=== PATIENT | female | born 1990 | race African-American/Black ===

== ENCOUNTER 2016-05-30 08:07 | Inpatient (IN) | payer MEDICAID ==
[2016-05-30] VITALS (14 sets, daily range): BP systolic 108–148; BP diastolic 47–79; PULSE 82–94; RESP 17–20; TEMP 97.6–98.2; O2SAT 94–98
[~2016-05-30 08:07] MED LIST: PREN29TA PO
[2016-05-30] MEDS ORDERED: LACTATED RINGER'S 1000 ML INJ 1,000 ML IV ONE (09:07)
--- NOTE | 2016-05-30 09:07 | HHI.HP ---
HPI Chief Complaint Scheduled Date Seen: May 30, 2016 Time Seen: 09:03 Travel History International Travel<30 Days: No Contact w/Intl Traveler<30Days: No Known Affected Area: No History of Present Illness HPI This patient is a 26-year-old , EDC is June 06, 2016, she is presently at 40 weeks gestation. She is scheduled for a repeat . A recent ultrasound done on January 30, 2016 confirmed an EDC of June 06. Today , the patient is feeling well. She endorses positive movement, she denies vaginal bleeding or discharge. She has been taking her baby aspirin, as well as her Tums every day. She has no allergies to medications or anesthesia. The patient does not want a bilateral tubal ligation, as well as initially planned. History Past Medical History Narrative Medical Acid reflux Preeclampsia 2 Elevated one hour GTT, level was 155, did not get three-hour test. Previous LGA baby Morbid obesity Obstetric History Obstetric History 2 prior C-sections in 2007, 2008 for preeclampsia. Both delivered postdates > 40 weeks. Allergies-Medications (Allergen,Severity, Reaction): Coded Allergies: No Known Allergies (Verified , 05/14/16) Home Meds Reported Medications Vit-Iron Carbonyl ( Plus Iron 29-1 mg)1 Tab Tab1 Tab PO DAILY #30 TAB Ref 0 04/14/16 Physical Exam Narrative GENERAL: Well-nourished, well-developed patient. SKIN: Warm and dry. HEAD: Normocephalic and atraumatic. EYES: No scleral icterus. No injection or drainage. ENT: No nasal drainage noted. Mucous membranes pink. Airway patent. NECK: Supple, trachea midline. No JVD. CARDIOVASCULAR: Regular rate and rhythm without murmurs, gallops, or rubs. RESPIRATORY: Breath sounds equal bilaterally. No accessory muscle use. BREASTS: Bilateral exam showed no masses , no retractions, no nipple discharge. ABDOMEN/GI: Abdomen soft, non-tender, bowel sounds present, no rebound, no guarding Gravid to 39 weeks size GENITOURINARY: External Genitalia: intact and normal in appearance FHT's: Category: 1 Baseline: 145 Reactive: Y Variability: mod Decels: none EXTREMITIES: No cyanosis or edema. BACK: Nontender without obvious deformity. NEUROLOGICAL: Awake and alert. Motor and sensory grossly within normal limits. Assessment/Plan Problem List: (1) Morbid obesity (2) History of pre-eclampsia (3) History of section (4) Gestational diabetes Assessment and Plan 26-year-old , presenting at 39 weeks gestation, for a scheduled . IUP - Scheduled 39 weeks gestation, confirmed with ultrasound during third trimester. Consents have been signed, patient does not want a bilateral tubal ligation. The patient does not have any allergies to medications, anesthesia, or bleeding disorders. Category 1 tracing. Not having contractions on toco. 2 g Ancef prior to . Type and screen, urinalysis, and preop H&H. Gestational Diabetes O'Astorga testing greater than 155. Diet controlled. Monitor blood sugar before meals. Previous preeclampsia Blood pressure on admission was 138/80. Blood pressures in the office have all been less than 143/90. Currently no symptoms of severe preeclampsia. Patient is on aspirin therapy. We'll discuss with Dawson Mcnally MD R2 May 30, 2016 09:07
[2016-05-30 09:19] LABS: AUTOMATED NEUTROPHIL # 3.5 TH/MM3 (1.8-7.7); BASOPHIL % 0.4 % (0.0-2.0); EOSINOPHIL # 0.1 TH/MM3 (0-0.4); EOSINOPHIL % 1.7 % (0.0-4.0); HEMATOCRIT 34.4 % (35.0-46.0); HEMO FLAGS DIFF FINAL; LYMPH % 36.3 % (9.0-44.0); LYMPHOCYTE # 2.3 TH/MM3 (1.0-4.8); MEAN CELL VOLUME 85.6 FL (80.0-100.0); MEAN CORPUSCULAR HEMOGLOBIN 28.7 PG (27.0-34.0); MEAN CORPUSCULAR HGB CONC 33.5 % (32.0-36.0); MONO % 6.1 % (0.0-8.0); NEUT % 55.5 % (16.0-70.0); PLATELET COUNT 151 TH/MM3 (150-450); RED BLOOD COUNT 4.02 MIL/MM3 (4.00-5.30); RED CELL DISTRIBUTION WIDTH 14.9 % (11.6-17.2); WHITE BLOOD COUNT 6.3 TH/MM3 (4.0-11.0)
[2016-05-30 09:29] LABS: BACTERIA, URINE MOD /hpf; BLOOD, URINE NEG (NEG); GLUCOSE,URINE NEG (NEG); KETONE, URINE NEG (NEG); MUCUS URINE FEW /lpf (OCC); NITRITE,URINE NEG (NEG); SQUAMOUS EPITHELIAL CELL URINE 4 /hpf (0-5); URINE COLOR YELLOW (YELLW/STRAW)
[2016-05-30 09:31] LABS: COMMENT (UR) CULTURE INDICATED; CULTURE IF INDICATED CULTURE INDICATED
[2016-05-30] MEDS ORDERED: OXYTOCIN 10 UNIT/ML AMP ONE (09:42)
[2016-05-30] MEDS ORDERED: LACTATED RINGER'S 1000 ML INJ 1,000 ML IV SCH ×2 (10:00→18:01)
[2016-05-30] MEDS ORDERED: ceFAZolin 2 GM PREMIX 50 ML IV SCH (10:15)
[2016-05-30] MEDS ORDERED: CITRIC ACID-SODIUM CITRATE LIQ 30 ML UDC PO SCH (10:45)
[2016-05-30] MEDS ORDERED: ONDANSETRON HCL 4 MG/2 ML VIAL ONE (11:14)
[2016-05-30] MEDS ORDERED: MORPHINE SULFATE PF 5 MG/10 ML VIAL ONE (11:14)
[2016-05-30] MEDS ORDERED: OXYTOCIN 30 UNITS-500ML PREMIX 500 ML ONE (12:17)
--- NOTE | 2016-05-30 13:11 | PD.OP ---
Operative Report Date of Surgery: May 30, 2016 Preoperative Diagnosis: Intrauterine at 39 weeks Previous 2 Postoperative Diagnosis: Same Nuchal cord 1 True knot in the cord Procedure: Repeat low segment transverse section Single-layer closure Anesthesia: Spinal Surgeon: Monique Cox Database Marketing Specialist(s): OR staff Resident Surgeon: None Operation and Findings: Viable female weight 7 lbs. 3 oz. equaling 3355 g with Apgars of 8 at 1 minute 9 at 5 minutes there was a nuchal cord loose 1 there was a true knot in the cord Anesthesia: ( Spinal) Anesthesiologist:: (Dr. Astorga ) Estimated blood loss: (600 cc ) Sponge and instrument count: (Correct ) Drains: (None ) Complications: (None ) Indications for procedure: ( ) Findings: (Female weight 7 lbs. 3 oz. Apgars of 8 at 1 minute 9 at 5 minutes 3355 g ) Timeout done The patient was taken to the operating room after appropriate levels of spinal anesthesia were achieved she was placed in the supine position. A Perla catheter was inserted under sterile conditions and draining adequate clear urine. Intermittent compression hoses were placed and functioning. Bovie pad was placed and grounded. The abdomen was shaved prepped and draped in the usual sterile fashion. Retintex uses to retract the abdomin A transverse Pfannenstiel incision was made carried down through the skin subcutaneous tissue, using the previous old scar. The fascia was opened transversely. from the muscles in the midline. The rectus muscles were . Peritoneal cavity opened and the abdominal cavity entered. The bladder flap was taken down transversely and a low segment transverse incision made into the lower uterine segment. The fluid was ( clear). The was vertex. The vertex was delivered using a Kiwi vacuum nose and mouth suctioned well the remainder of the body was then delivered. Nuchal cord was reduced Cord doubly clamped and cut and the infant handed over to the awaiting nursing staff. True knot in the cord The placenta spontaneously delivered intact with fundal massage. The uterus was then exteriorized cleaned of excessive blood and debris. The incision was then closed with 0 chromic in a continuous interlocking stitch. Single-layer closure. No active bleeding. Tubes and ovaries were inspected and found to be normal. The abdominal cavity was then irrigated. The uterus placed back into the abdomen. Paracolic gutters cleaned of excessive blood and debris. Interceed was then placed over the incision and the anterior surface of the uterus in an inverted T. The perineum and muscle closed as 1 using 2-0 Vicryl Inspection of the muscle bed demonstrated no bleeding. The fascia was then closed with 0 Vicryl in a continuous stitch. The subcutaneous tissue was irrigated bleeders controlled with Bovie. Ronn's fascia closed with 2-0 Vicryl. The skin was closed using (subcuticular stitch with 3-0 Monocryl on a Gregory needle and Dermabond ). The uterus was massaged clearing blood and clots. The patient was cleaned. Pressure dressing and abdominal binder placed. Patient then transferred to the recovery room in stable condition, where her vital signs are (stable ). Urine is clear and adequate. Baby transferred to the nursery in stable condition. Monique Joel MD May 30, 2016 13:11
[2016-05-30] MEDS ORDERED: OXYTOCIN 30 UNITS-500ML PREMIX 500 ML IV ONE (13:15)
[2016-05-30] MEDS ORDERED: SIMETHICONE 80 MG CHEWABLE TAB PO PRN (13:15)
[2016-05-30] MEDS ORDERED: ACETAMINOPHEN 1000 MG/100 ML VIAL IV ONE (13:15)
[2016-05-30] MEDS ORDERED: ONDANSETRON HCL 4 MG/2 ML VIAL IV PUSH PRN (13:15)
[2016-05-30] MEDS ORDERED: SODIUM CHLORIDE 0.9% FLUSH 5 ML FLUSH IV PRN (13:15)
[2016-05-30] MEDS ORDERED: ACETAMINOPHEN 325 MG TAB PO PRN (13:15)
[2016-05-30] MEDS ORDERED: DOCUSATE SODIUM 50 MG/SENNA 8.6 MG TAB PO PRN (13:15)
[2016-05-30] MEDS ORDERED: oxyCODONE/ACETAMINOPHEN 5 MG/325 MG TAB PO PRN (13:15)
[2016-05-30] MEDS ORDERED: ZOLPIDEM TARTRATE 5 MG TAB PO PRN (21:00)
[2016-05-30] MEDS ORDERED: SODIUM CHLORIDE 0.9% FLUSH 5 ML FLUSH IV SCH (21:00)
[2016-05-30] MEDS ORDERED: OXYTOCIN 30 UNITS-500ML PREMIX 500 ML IV PRN (23:15)
[2016-05-31 04:00] VITALS: BP 119/77; PULSE 97; RESP 16; TEMP 98.5
[2016-05-31 05:28] LABS: AUTOMATED NEUTROPHIL # 13.2 TH/MM3 (1.8-7.7); BASOPHIL % 0.2 % (0.0-2.0); EOSINOPHIL % 0.1 % (0.0-4.0); HEMATOCRIT 33.2 % (35.0-46.0); HEMO FLAGS DIFF FINAL; LYMPH % 14.9 % (9.0-44.0); LYMPHOCYTE # 2.4 TH/MM3 (1.0-4.8); MEAN CELL VOLUME 86.3 FL (80.0-100.0); MEAN CORPUSCULAR HEMOGLOBIN 28.2 PG (27.0-34.0); MEAN CORPUSCULAR HGB CONC 32.7 % (32.0-36.0); MONO % 4.7 % (0.0-8.0); NEUT % 80.1 % (16.0-70.0); PLATELET COUNT 140 TH/MM3 (150-450); RED BLOOD COUNT 3.85 MIL/MM3 (4.00-5.30); RED CELL DISTRIBUTION WIDTH 14.8 % (11.6-17.2); WHITE BLOOD COUNT 16.4 TH/MM3 (4.0-11.0)
[2016-05-31 07:00] VITALS: BP 115/73; PULSE 100; RESP 16; TEMP 98.6
--- NOTE | 2016-05-31 07:04 | HHI.OB ---
Subjective Post Operative Day: 1 Remarks 26 y/o G4 now P3, POD # 1 scheduled repeat at 39 weeks. She is doing "good." She is ambulating, urinating, and breast feeding without difficulty. She is having decreased lochia. She is passing gas. Her pain is a 0/ 10. She would like a Nexplanon as an outpatient. Objective Vitals/I&O Vital Signs Date Time Temp Pulse Resp B/P Pulse Ox O2 Delivery O2 Flow Rate FiO2 05/30/16 18:59 17 05/30/16 18:40 17 05/30/16 17:50 98.2 90 109/79 98 05/30/16 17:00 18 05/30/16 16:20 18 05/30/16 14:30 20 05/30/16 13:20 97.8 94 17 136/71 97 05/30/16 12:56 82 18 130/75 96 05/30/16 12:50 98.0 05/30/16 12:43 92 18 94 05/30/16 12:43 121/76 05/30/16 12:30 94 05/30/16 12:30 82 18 148/68 05/30/16 12:14 84 18 108/64 95 05/30/16 12:00 97.6 96 05/30/16 12:00 90 18 116/47 05/30/16 09:00 98.2 18 Result Diagram: 05/31/16 0402 Objective Remarks GENERAL: Well-nourished, well-developed patient. CARDIOVASCULAR: Regular rate and rhythm without murmurs, gallops, or rubs. RESPIRATORY: Breath sounds equal bilaterally. No accessory muscle use. ABDOMEN/GI: Abdomen soft, non-tender, bowel sounds present. Incision: Clean, dry and intact. Fundus: Firm, non-tender at umbilicus. GENITOURINARY: Light to moderate bleeding. EXTREMITIES: No cyanosis or edema, non-tender, without signs of DVT. Medications and IVs Current Medications Medications (Trade) Dose Ordered Sig/David Route Start Time Stop Time Status Last Admin (Lr 1000 ml Inj) 1,000 ml @ 100 mls/hr Q10H IV 05/30/16 18:01 05/31/16 14:00 05/31/16 03:01 (NS Flush) 2 ml BID IV 05/30/16 21:00 (NS Flush) 2 ml UNSCH PRN IV 05/30/16 13:15 (Mylicon Chew) 80 mg QID PRN PO 05/30/16 13:15 (Tylenol) 650 mg Q6H PRN PO 05/30/16 13:15 (Motrin) 600 mg Q6H PRN PO 05/30/16 13:15 (Percocet 5-325 Mg) 1 tab Q4H PRN PO 05/30/16 13:15 (Percocet 5-325 Mg) 2 tab Q4H PRN PO 05/30/16 13:15 (Carmel-Colace) 2 tab Q12H PRN PO 05/30/16 13:15 (Ambien) 5 mg HS PRN PO 05/30/16 21:00 (M-M-R Ii Inj) 0.5 ml ONCE ONCE SQ 05/31/16 16:00 05/31/16 16:01 (Boostrix Inj) 0.5 ml ONCE ONCE IM 05/31/16 16:00 05/31/16 16:01 (Zofran Inj) 4 mg Q6H PRN IV PUSH 05/30/16 13:15 05/30/16 15:23 Assessment/Plan Problem List: (1) Morbid obesity (2) History of pre-eclampsia (3) History of section (4) Gestational diabetes Assessment and Plan 26-year-old , delivered via repeat C/S - POD #1. POD # 1 - Cesarian Section Doing well continue with routine post care Motrin Percocet PRN pain Breast feeding VSS and she is afebrile UA showed negative Leuk Esterase and Nitrites Post op Hgb went from 11.6 --> 10.9. WBC went from 6.3 --> 16.4 K. Probable stress reaction from surgery. F/u with Pushpa Girard in 1 week. Wants Nexplanon. We'll discuss with Dr. Grimaldo-Dawson Lopes MD R2 May 31, 2016 07:04
[2016-05-31] MEDS: IBUPROFEN 600 MG TAB PO PRN ×2 (13:34→19:43)
[2016-05-31] MEDS ORDERED: MEASLES, MUMPS, RUBELLA VACCINE 0.5 ML VIAL SQ ONE (16:00)
[2016-05-31] MEDS ORDERED: DIPHTH/TETANUS/ACEL PERTUSSIS (BOOSTER) 0.5 ML VIAL/PFS IM ONE (16:00)
[2016-06-01] MEDS: IBUPROFEN 600 MG TAB PO PRN ×2 (01:43→12:07)
[2016-06-01] MEDS: oxyCODONE/ACETAMINOPHEN 5 MG/325 MG TAB PO PRN ×2 (07:42→23:03)
--- NOTE | 2016-06-01 11:47 | HHI.OB ---
Subjective Post Operative Day: 2 Remarks 26 year old female s/p repeat at 39/0 wks gestation, POD 2. AFVSS. Patient reports she is feeling well. Bleeding is decreasing and pain is well-controlled. She is breast feeding and bonding well with baby. Ambulating without difficulties. She is tolerating a diet without nausea or vomiting. She has not had a bowel movement. She has passed gas. Denies chest pain, dysuria, shortness of breath, or calf pain. Objective Result Diagram: 05/31/162 Objective Remarks GENERAL: Well-nourished, well-developed patient. CARDIOVASCULAR: Regular rate and rhythm without murmurs, gallops, or rubs. RESPIRATORY: Breath sounds equal bilaterally. No accessory muscle use. ABDOMEN/GI: Abdomen soft, non-tender. Incision: Clean, dry and intact. Fundus: Firm, non-tender at umbilicus. GENITOURINARY: Light to moderate bleeding. EXTREMITIES: No cyanosis or edema, non-tender, without signs of DVT. Medications and IVs Current Medications Medications (Trade) Dose Ordered Sig/David Route Start Time Stop Time Status Last Admin (NS Flush) 2 ml BID IV 05/30/16 21:00 (NS Flush) 2 ml UNSCH PRN IV 05/30/16 13:15 (Mylicon Chew) 80 mg QID PRN PO 05/30/16 13:15 (Tylenol) 650 mg Q6H PRN PO 05/30/16 13:15 (Motrin) 600 mg Q6H PRN PO 05/30/16 13:15 06/01/16 01:43 (Percocet 5-325 Mg) 1 tab Q4H PRN PO 05/30/16 13:15 06/01/16 07:42 (Percocet 5-325 Mg) 2 tab Q4H PRN PO 05/30/16 13:15 (Carmel-Colace) 2 tab Q12H PRN PO 05/30/16 13:15 (Ambien) 5 mg HS PRN PO 05/30/16 21:00 (Zofran Inj) 4 mg Q6H PRN IV PUSH 05/30/16 13:15 05/30/16 15:23 Assessment/Plan Problem List: (1) Morbid obesity (2) History of pre-eclampsia (3) History of section (4) Gestational diabetes Assessment and Plan 26-year-old , delivered via repeat C/S - POD #2. - AFVSS - Continue routine care * UA likely due to contamination as there was negative nitrites and leukocyte esterase. Additionally the staph coag negative is likely contamination from normal skin tyron since patient is asymptomatic - Motrin and Percocet PRN pain - Encourage OOB - Pelvic rest x 6 wks. Will need a f/u appt in 1ks for incision check. - Contraception: Options discussed. Would like Nexplanon - Anticipate D/C tomorrow with follow-up with care for woman in one week dw Beatris Minor MD R2 Jun 01, 2016 11:47
[2016-06-02] MEDS: oxyCODONE/ACETAMINOPHEN 5 MG/325 MG TAB PO PRN ×2 (05:22→10:42)
[2016-06-02] MEDS: IBUPROFEN 600 MG TAB PO PRN (05:23)
[2016-06-02 06:22] VITALS: RESP 18
[2016-06-02] MEDS ORDERED: OXYC1TAB63 PO (06:31)
[2016-06-02] MEDS ORDERED: IBUP-232 PO (06:31)
--- NOTE | 2016-06-02 06:32 | HHI.DCPOC ---
Discharge Care Plan Diagnosis: (1) delivery delivered Report Symptoms to Your Doctor -Temperate above 100.5 degrees -Redness, of incision or excessive or foul smelling drainage -Unusual pain or calf pain -Increased vaginal bleeding -Painful or difficulty urinating -Feelings of extreme sadness or anxiety after 2 weeks Goals to Promote Your Health * To prevent worsening of your condition and complications * To maintain your health at the optimal level Directions to Meet Your Goals Take your medications as prescribed Follow your dietary instruction Follow activity as directed Ensure plenty of rest for recovery Drink fluids for hydration Keep your appointments as scheduled Take your immunizations and boosters as scheduled If your symptoms worsen call your PCP, if no PCP go to Urgent Care Center or Emergency Room Smoking is Dangerous to Your Health. Avoid second hand smoke Call the 24-hour crisis hotline for domestic abuse at Beatris Pham MD R2 Jun 02, 2016 06:32
--- NOTE | 2016-06-02 07:24 | HHI.OB ---
Subjective Post Operative Day: 3 Remarks 26 year old female s/p repeat at 39/0 wks gestation, POD 3. AFVSS. Patient reports she is feeling well. Bleeding is decreasing and pain is well-controlled. She is breast feeding and bonding well with baby. Ambulating without difficulties. She is tolerating a diet without nausea or vomiting. She has not had a bowel movement. She has passed gas. Denies chest pain, dysuria, shortness of breath, or calf pain. Objective Vitals/I&O Vital Signs Date Time Temp Pulse Resp B/P Pulse Ox O2 Delivery O2 Flow Rate FiO2 06/02/16 06:22 18 06/02/16 06:22 18 Result Diagram: 05/31/16 0402 Objective Remarks GENERAL: Well-nourished, well-developed patient. CARDIOVASCULAR: Regular rate and rhythm without murmurs, gallops, or rubs. RESPIRATORY: Breath sounds equal bilaterally. No accessory muscle use. ABDOMEN/GI: Abdomen soft, non-tender. Incision: Clean, dry and intact. Superficial separation of incision but otherwise it looks clean Fundus: Firm, non-tender at umbilicus. GENITOURINARY: Light to moderate bleeding. EXTREMITIES: No cyanosis or edema, non-tender, without signs of DVT. Medications and IVs Current Medications Medications (Trade) Dose Ordered Sig/David Route Start Time Stop Time Status Last Admin (NS Flush) 2 ml BID IV 05/30/16 21:00 (NS Flush) 2 ml UNSCH PRN IV 05/30/16 13:15 (Mylicon Chew) 80 mg QID PRN PO 05/30/16 13:15 (Tylenol) 650 mg Q6H PRN PO 05/30/16 13:15 (Motrin) 600 mg Q6H PRN PO 05/30/16 13:15 06/02/16 05:23 (Percocet 5-325 Mg) 1 tab Q4H PRN PO 05/30/16 13:15 06/02/16 05:22 (Percocet 5-325 Mg) 2 tab Q4H PRN PO 05/30/16 13:15 (Carmel-Colace) 2 tab Q12H PRN PO 05/30/16 13:15 (Ambien) 5 mg HS PRN PO 12/30/16 21:00 (Zofran Inj) 4 mg Q6H PRN IV PUSH 05/30/16 13:15 05/30/16 15:23 Assessment/Plan Problem List: (1) Morbid obesity (2) History of pre-eclampsia (3) History of section (4) Gestational diabetes Assessment and Plan 26-year-old , delivered via repeat C/S - POD #3. - AFVSS - Continue routine care * UA likely due to contamination as there was negative nitrites and leukocyte esterase. Additionally the staph coag negative is likely contamination from normal skin tyron since patient is asymptomatic - Motrin and Percocet PRN pain - Encourage OOB - Pelvic rest x 6 wks. Will need a f/u appt in 1ks for incision check. - Contraception: Options discussed. Would like Nexplanon as an outpatient - Anticipate D/C tomorrow with follow-up with care for woman in one week dw Beatris Minor MD R2 Jun 02, 2016 07:24
--- NOTE | 2016-06-02 09:12 | HHI.OB ---
Subjective Post Operative Day: 3 Remarks doing well , seen with FM residents and brette with their eval and plan to D/C Objective Vitals/I&O Vital Signs Date Time Temp Pulse Resp B/P Pulse Ox O2 Delivery O2 Flow Rate FiO2 06/02/16 06:22 18 06/02/16 06:22 18 Result Diagram: 05/31/16 0402 Objective Remarks GENERAL: Well-nourished, well-developed patient. CARDIOVASCULAR: Regular rate and rhythm without murmurs, gallops, or rubs. RESPIRATORY: Breath sounds equal bilaterally. No accessory muscle use. ABDOMEN/GI: Abdomen soft, non-tender. Incision: Clean, dry and intact. Superficial separation of incision but otherwise it looks clean Fundus: Firm, non-tender at umbilicus. GENITOURINARY: Light to moderate bleeding. EXTREMITIES: No cyanosis or edema, non-tender, without signs of DVT. Medications and IVs Current Medications Medications (Trade) Dose Ordered Sig/David Route Start Time Stop Time Status Last Admin (NS Flush) 2 ml BID IV 05/30/16 21:00 (NS Flush) 2 ml UNSCH PRN IV 05/30/16 13:15 (Mylicon Chew) 80 mg QID PRN PO 05/30/16 13:15 (Tylenol) 650 mg Q6H PRN PO 05/30/16 13:15 (Motrin) 600 mg Q6H PRN PO 05/30/16 13:15 06/02/16 05:23 (Percocet 5-325 Mg) 1 tab Q4H PRN PO 05/30/16 13:15 06/02/16 05:22 (Percocet 5-325 Mg) 2 tab Q4H PRN PO 05/30/16 13:15 (Carmel-Colace) 2 tab Q12H PRN PO 05/30/16 13:15 (Ambien) 5 mg HS PRN PO 05/30/16 21:00 (Zofran Inj) 4 mg Q6H PRN IV PUSH 05/30/16 13:15 05/30/16 15:23 Assessment/Plan Problem List: (1) Morbid obesity (2) History of pre-eclampsia (3) History of section (4) Gestational diabetes Assessment and Plan 26-year-old , delivered via repeat C/S - POD #3. - AFVSS - Continue routine care * UA likely due to contamination as there was negative nitrites and leukocyte esterase. Additionally the staph coag negative is likely contamination from normal skin tyron since patient is asymptomatic - Motrin and Percocet PRN pain - Encourage OOB - Pelvic rest x 6 wks. Will need a f/u appt in 1ks for incision check. - Contraception: Options discussed. Would like Nexplanon as an outpatient - Anticipate D/C tomorrow with follow-up with care for woman in one week dw Dr. Mynor Lowe,Kevyn Martin II, MD Jun 02, 2016 09:12
[2016-07-16] MEDS ORDERED: NORG1TAB29 PO (11:04)
== END 2016-06-02 13:51 | disposition home or self-care (01) | DRG 766 ==
LOC: H2EB 08:07 → H1EA 13:16
PROVIDERS: ADMIT Obstetrics & Gynecology; ATTEND Obstetrics & Gynecology
PROC: 10D00Z1 Extraction of Products of Conception, Low, Open Approach (ICD-10-PCS; principal; 2016-05-30)
DX: O34.211 Maternal care for low transverse scar from previous cesarean delivery (principal); O24.429 Gestational diabetes mellitus in childbirth, unspecified control; K21.9 Gastro-esophageal reflux disease without esophagitis; O99.214 Obesity complicating childbirth; E66.01 Morbid (severe) obesity due to excess calories; O69.2XX0 Labor and delivery complicated by other cord entanglement, with compression, not applicable or unspecified; O69.81X0 Labor and delivery complicated by cord around neck, without compression, not applicable or unspecified; O99.62 Diseases of the digestive system complicating childbirth; Z37.0 Single live birth; Z3A.40 40 weeks gestation of pregnancy; Z79.82 Long term (current) use of aspirin
CPT/HCPCS: 59025; 81001; 85025; 86403; 86850; 86900; 86901; 87077; 87086; 87186; J0131; J0690; J2274; J2405; J2590; J7120